=== PATIENT | male | born 1985 | race Caucasian/White ===

== ENCOUNTER 2016-07-15 19:09 | Emergency (ER) | payer SELFPAY ==
[2016-07-15 19:44] LABS: BASOPHIL 0.2 % (0-2); HCT 45.4 % (42.0-52.0); HGB 15.6 g/dl (13.2-18.0); LYMPHOCYTE 28.7 % (15-48); MCH 30.7 pg (25.0-31.0); MCHC 34.4 g/dL (32.0-36.0); MCV 89.4 fL (78.0-100.0); MONOCYTE 7.2 % (0-12); MPV 10.2 fL (6.0-9.5); NEUTROPHIL 61.9 % (41-80); PLT 236 K/uL (150-400); RBC 5.08 M/uL (4.70-6.00); RDW 13.5 % (11.5-14.0); WBC 8.6 K/uL (4.0-10.5)
[2016-07-15 19:56] LABS: ALBUMIN 4.5 g/dL (3.5-5.0); BILIRUBIN - TOTAL 0.4 mg/dL (0.1-1.0); CKMB 1.28 ng/mL (0.97-4.94); GLOBULIN (CALCULATION) 2.6 g/dL (2.2-4.2); POTASSIUM 4.2 mmol/L (3.5-5.1); TOTAL PROTEIN 7.1 g/dL (6.4-8.3); TROPONIN T < 0.010 ng/mL
== END 2016-07-15 20:30 | disposition home or self-care (01) ==
LOC: FER 19:09
PROVIDERS: Emergency Medicine
DX: R07.89 Other chest pain (principal)
CPT/HCPCS: 36415; 71020; 80053; 82150; 82550; 82553; 83690; 84484; 85025; 93005

== ENCOUNTER 2020-12-04 20:31 | Emergency (ER) | payer OTHER ==
[~2020-12-04 20:31] MED LIST: PEPCID AC20 MG PO; ZOFRAN4 MG PO
[2020-12-04 21:21] LABS: BASOPHIL 0.7 % (0-2); EOSINOPHIL 3.8 % (0-5); HCT 46.5 % (42.0-52.0); HGB 15.8 g/dl (13.2-18.0); LYMPHOCYTE 30.5 % (15-48); MCH 30.5 pg (25.0-31.0); MCV 89.8 fL (78.0-100.0); MONOCYTE 7.2 % (0-12); MPV 10.3 fL (6.0-9.5); NEUTROPHIL 57.5 % (41-80); NRBC 0; PLT 250 K/uL (150-400); RBC 5.18 M/uL (4.70-6.00); RDW 12.3 % (11.5-14.0); WBC 7.7 K/uL (4.0-10.5)
[2020-12-04 21:25] LABS: INR 1.1 (0.9-1.2); PROTHROMBIN TIME 13.6 SECONDS (11.8-13.4); PTT 28.8 SECONDS (24.4-34.7)
[2020-12-04 21:30] LABS: ALBUMIN 3.9 g/dL (3.4-5.0); BILIRUBIN - TOTAL 0.8 mg/dL (0.2-1.0); BUN/CREAT RATIO (CALC) 13.8 RATIO; CREATININE 0.87 mg/dL (0.67-1.17); GLOBULIN (CALCULATION) 3.8 g/dL; POTASSIUM 3.9 mmol/L (3.5-5.1); TOTAL PROTEIN 7.7 g/dL (6.4-8.2)
[2020-12-05] MEDS ORDERED: ZESTRIL5 MG PO (03:23)
[2020-12-05] MEDS ORDERED: PRILOSEC20 MG PO (03:23)
== END 2020-12-05 03:54 | disposition home or self-care (01) ==
LOC: FER 20:31
PROVIDERS: Emergency Medicine Emergency Medical Services
DX: R07.89 Other chest pain (principal); I10 Essential (primary) hypertension; Z20.822 Contact with and (suspected) exposure to COVID-19
CPT/HCPCS: 36415; 71045; 80053; 83735; 84484; 85025; 85379; 85610; 85730; 93005; J7030; U0002

== ENCOUNTER 2021-09-14 03:00 | Emergency (ER) | payer OTHER ==
[~2021-09-14 03:00] MED LIST changes: +PRILOSEC20 MG PO; +ZESTRIL5 MG PO
[2021-09-14 03:28] LABS: BASOPHIL 0.6 % (0-2); EOSINOPHIL 1.8 % (0-5); HGB 16.2 g/dl (13.2-18.0); LYMPHOCYTE 19.3 % (15-48); MCH 30.1 pg (25.0-31.0); MCHC 33.8 g/dL (32.0-36.0); MCV 89.1 fL (78.0-100.0); MPV 10.5 fL (6.0-9.5); NEUTROPHIL 71.2 % (41-80); NRBC 0; PLT 238 K/uL (150-400); RBC 5.39 M/uL (4.70-6.00); RDW 12.6 % (11.5-14.0); WBC 7.2 K/uL (4.0-10.5)
[2021-09-14 03:45] LABS: INR 1.13 (0.9-1.2); PROTHROMBIN TIME 13.9 SECONDS (11.8-13.4); PTT 27.3 SECONDS (24.4-34.7)
[2021-09-14 03:52] LABS: ALBUMIN 3.6 g/dL (3.4-5.0); BILIRUBIN - TOTAL 0.6 mg/dL (0.2-1.0); BUN/CREAT RATIO (CALC) 13.5 RATIO; CREATININE 0.96 mg/dL (0.67-1.17); POTASSIUM 3.4 mmol/L (3.5-5.1); TOTAL PROTEIN 7.6 g/dL (6.4-8.2)
== END 2021-09-14 05:50 | disposition home or self-care (01) ==
LOC: FER 03:00
PROVIDERS: Emergency Medicine
DX: R07.89 Other chest pain (principal); I10 Essential (primary) hypertension
CPT/HCPCS: 36415; 71045; 80053; 84484; 85025; 85379; 85610; 85730; 93005